=== PATIENT | female | born 1995 | race African-American/Black ===

== ENCOUNTER 2022-03-28 16:04 | Emergency (ER) | payer SELFPAY ==
[~2022-03-28] VITALS: Ht 165.1 cm; Wt 68.2 kg
[2022-03-28 17:07] LABS: STREP SCREEN NEGATIVE
[2022-03-28 18:45] LABS: MONOSCREEN POSITIVE
[2022-03-28 19:26] VITALS: BP 105/70; PULSE 58; TEMP 98
== END 2022-03-28 19:25 | disposition home or self-care (01) ==
LOC: COL.ER 16:04
PROVIDERS: Nurse Practitioner Primary Care
DX: B27.90 Infectious mononucleosis, unspecified without complication (principal)

== ENCOUNTER 2022-06-14 05:10 | Emergency (ER) | payer BC ==
[~2022-06-14] VITALS: Ht 165.1 cm; Wt 72.7 kg
[2022-06-14 05:13] VITALS: TEMP 98
[2022-06-14 05:52] VITALS: BP 101/68; PULSE 73
== END 2022-06-14 05:54 | disposition home or self-care (01) ==
LOC: COL.ER 05:10
DX: Z03.823 Encounter for observation for suspected inserted (injected) foreign body ruled out (principal)